=== PATIENT | male | born 1955 | race Caucasian/White ===

== ENCOUNTER → 2023-04-03 14:32 | Outpatient (CLI) | payer MEDICARE, SELFPAY ==
--- NOTE | ~2023-04-03 | CT_ITS ---
EXAMINATION: CTA brain carotid DATE: 04/03/2023 15:23 CDT INDICATION: Pulsatile tinnitus TECHNIQUE: Computed tomographic angiography (CTA) of the head was performed without and with 100 mL O mnipaque-350 intravenous contrast. CTA of the neck was performed with intravenous contrast. The dose- length product was 1647.43 mGy-cm. Maximum intensity projection and volume rendered 3D-reconstruction s were created by the technologist on a separate workstation. Automated exposure control and iterativ e reconstruction technique were employed. COMPARISON: None. FINDINGS: HEAD CT/CTA: Brain parenchymal volume is normal for age. No ventriculomegaly or midline shift. Basila r cisterns are patent. There is mild intracranial atherosclerosis. Normal veliz-white differentiation. No acute infarction, hemorrhage, mass or mass effect. The anterior, middle and posterior cerebral ar teries are symmetric without significant stenosis, occlusion, aneurysm or vascular anomaly. The anter ior communicating artery is present. The posterior communicating arteries are present. There are dianelys nant vertebral arteries. There is mild narrowing of the right vertebral artery in the mid cervical le sujatha. Paranasal sinuses and mastoids are pneumatized. No depressed skull fractures. NECK CTA: The common, internal, external carotid arteries are within normal limits. No significant st enosis, atherosclerotic change, occlusion or dissection. Lung apices are unremarkable. There are mult iple low-density masses in the thyroid gland, largest measuring approximately 1.6 cm and the left lob e. Correlation with thyroid ultrasound recommended. No cervical lymphadenopathy. There is 0% stenosis of the proximal right internal carotid artery relative to normal distal artery l umen diameter (NASCET criteria). There is 0% stenosis of the proximal left internal carotid artery re lative to normal distal artery lumen diameter. IMPRESSION: 1: No significant vascular abnormality of the head or neck. 2: Multiple hypodense thyroid masses jazmine suring up to 1.6 cm and the left lobe. Consider correlation with thyroid ultrasound. Reviewed, dictated and finalized at location A. IMPRESSION: 1: No significant vascular abnormality of the head or neck. 2: Multiple hypode nse thyroid masses measuring up to 1.6 cm and the left lobe. Consider correlati on with thyroid ultrasound.
== END ==
PROVIDERS: PCP Family Medicine; Visit Provider Family Medicine
DX: H93.A1 Pulsatile tinnitus, right ear (principal); E07.89 Other specified disorders of thyroid
CPT/HCPCS: 70496; 70498; Q9967

== ENCOUNTER 2024-06-18 08:15 | Outpatient (CLI) | payer MEDICARE, SELFPAY ==
--- NOTE | ~2024-06-18 | MR_ITS ---
EXAMINATION: MRA brain wo con DATE: 06/18/2024 09:21 INDICATION: Dizziness. Visual disturbance. Benign positional vertigo. TECHNIQUE: Magnetic resonance angiography (MRA) of the brain was performed without intravenous contra st with T1-weighted SPGR by the 3D [id number] technique. Maximum intensity projection 3D-reconstr uctions were obtained. COMPARISON: CTA 04/03/2023 FINDINGS: The vertebral arteries are codominant. There is no significant stenosis of basilar artery or the post erior cerebral arteries. The posterior communicating arteries are normal. There is no significant cheryl nosis of the intracranial internal carotid arteries or anterior or middle cerebral arteries. Anterior communicating artery is normal. There is no aneurysm. IMPRESSION: 1. Normal MRA. Reviewed, dictated and finalized at location A. IMPRESSION: 1. Normal MRA.
== END 2024-06-18 08:16 | disposition home or self-care (01) ==
LOC: GOSHIMG 08:16
PROVIDERS: PCP Pediatrics; Visit Provider Pediatrics
DX: H81.10 Benign paroxysmal vertigo, unspecified ear (principal); H53.9 Unspecified visual disturbance
CPT/HCPCS: 70544